=== PATIENT | female | born 1985 | race Caucasian/White ===

== ENCOUNTER 2019-04-07 07:54 | Day surgery (SDC) | payer BC ==
[2019-04-05 12:09] LABS: BASOPHILS % (AUTO) 0.5 % (0-1); EOSINOPHILS # (AUTO) 0.2 X10'3 (0-0.9); EOSINOPHILS % (AUTO) 2.6 % (0-6); LYMPHOCYTES # (AUTO) 1.7 X10'3 (1.1-4.8); LYMPHOCYTES % (AUTO) 26.5 % (21-51); MEAN CORPUSCULAR HEMOGLOBIN 31.8 PG (27.0-31.0); MEAN CORPUSCULAR HGB CONC 35.3 g/dL (33.0-36.5); MEAN CORPUSCULAR VOLUME 90.1 FL (78-98); MEAN PLATELET VOLUME 7.8 FL (7.4-10.4); MONOCYTES # (AUTO) 0.5 X10'3 (0-0.9); MONOCYTES % (AUTO) 7.6 % (2-12); NEUTROPHILS # (AUTO) 4.1 X10'3 (1.8-7.7); NEUTROPHILS % (AUTO) 62.8 % (42-75); PRE OP HEMATOCRIT 39.9 % (35.0-45.0); PRE OP HEMOGLOBIN 14.1 g/dL (12.0-16.0); PRE OP PLATELET COUNT 229 X10'3 (140-440); RED BLOOD COUNT 4.43 X10'6 (4.20-5.60); RED CELL DISTRIBUTION WIDTH 13.1 % (11.5-14.5)
[2019-04-05 12:20] LABS: HCG SERUM QL NEGATIVE
[2019-04-05 12:27] LABS: ALBUMIN 3.9 G/DL (3.4-5.0); ALKALINE PHOSPHATASE 59 IU/L (46-116); BLOOD UREA NITROGEN 17 MG/DL (7-18); BUN/CREATININE RATIO 18.1 (6.6-38.0); CALCIUM 8.9 MG/DL (8.5-10.1); CHLORIDE 108 MMOL/L (99-107); CREATININE 0.94 MG/DL (0.40-0.90); PRE OP ALT 46 U/L (30-65); PRE OP ANION GAP 9 (8-16); PRE OP AST 28 U/L (10-37); PRE OP BILIRUB, TOTAL 0.6 MG/DL (0.0-1.0); PRE OP GLUCOSE 101 MG/DL (70-104); PRE OP POTASSIUM 3.8 MMOL/L (3.4-5.1); PRE OP SODIUM 141 MMOL/L (135-145); TOTAL PROTEIN 7.8 G/DL (6.4-8.2); eGFR 69 ML/MIN
[2019-04-07] VITALS (7 sets, daily range): BP systolic 114–171; BP diastolic 80–116
[~2019-04-07] VITALS: Ht 172.7 cm; Wt 106.6 kg
[~2019-04-07 07:54] MED LIST: ALPR-160 PO; ASPI-611 PO; BUPIVAcaine/PF 2.5mg/ml (0.25%) 10ml vial ONE; FENO145T25 PO; OMEG1CAP PO; ROSU20TA31 PO; SERT50TA10 PO; cefazolin/dext.iso 2gm/100 ML IV ONE; famotidine 20mg tablet PO ONE; ringers solution, lacted 1,000 ML IV SCH
[2019-04-07] MEDS ORDERED: ringers solution, lacted 1,000 ML IV SCH (08:48)
[2019-04-07] MEDS ORDERED: meperidine/PF 25mg/ml syringe IV PRN ×2 (08:50)
[2019-04-07] MEDS ORDERED: ondansetron/PF 4mg/2ml inj IV PRN (08:50)
[2019-04-07] MEDS ORDERED: proCHLORperazine 10 MG/2 ml inj IV PRN (08:50)
[2019-04-07] MEDS ORDERED: morphine 4 MG/ML inj SYRINge IV PRN ×2 (08:50)
[2019-04-07] MEDS ORDERED: fentaNYL/PF 50MCG/1 ML 2ML syringe ONE (10:21)
[2019-04-07] MEDS ORDERED: midazolam 2 mg/2 ml injection ONE (10:21)
[2019-04-07] MEDS ORDERED: glycopyrrolate 0.2mg/ml inj ONE (10:22)
[2019-04-07] MEDS ORDERED: dexamethasone sod phosphate 4mg/ml inj. ONE (10:22)
[2019-04-07] MEDS ORDERED: propofol inj 20 ML IV ONE (10:22)
[2019-04-07] MEDS ORDERED: LIDOcaine 2% (20mg/ml) 5ml vial ONE (10:22)
[2019-04-07] MEDS ORDERED: ondansetron/PF 4mg/2ml inj ONE (10:22)
[2019-04-07] MEDS ORDERED: neostigmine methylsulfate 1 MG/ML 10ml vial ONE (10:22)
[2019-04-07] MEDS ORDERED: sevoflurane 250ml liquid IH ONE (11:00)
[2019-04-07] MEDS ORDERED: rocuronium 10mg/ml inj IV ONE (11:00)
[2019-04-07] MEDS ORDERED: sugammadex 200mg/2ml injection IV ONE (11:39)
--- NOTE | 2019-04-07 11:46 | NUR ---
Received from OR via , accompanied by Anesthesiologist DR LOWRY and report given by Anesthesiolgist. AWAKENS TO VOICE. VITALS STABLE. DRESSINGS DI. STATES SEVERE ABD PAIN. WILL MEDICATE. ABD SOFT.
[2019-04-07] MEDS: meperidine/PF 25mg/ml syringe IV PRN ×2 (11:53→12:03)
--- NOTE | 2019-04-07 12:46 | NUR ---
AWAKE AND ORIENTED. VITALS STABLE. DRESSING DI. STATES PAIN IMPROVING. HOME WITH HER MOM AT THIS TIME.
== END 2019-04-07 12:46 | disposition home or self-care (01) ==
LOC: PAS 07:54
PROVIDERS: ATTEND Obstetrics & Gynecology
DX: Z30.2 Encounter for sterilization (principal); G47.33 Obstructive sleep apnea (adult) (pediatric); E11.9 Type 2 diabetes mellitus without complications; G43.909 Migraine, unspecified, not intractable, without status migrainosus; F41.9 Anxiety disorder, unspecified; J45.909 Unspecified asthma, uncomplicated; F32.9 Major depressive disorder, single episode, unspecified; Z88.0 Allergy status to penicillin; Z86.73 Personal history of transient ischemic attack (TIA), and cerebral infarction without residual deficits; Z98.890 Other specified postprocedural states; Z72.89 Other problems related to lifestyle
CPT/HCPCS: 36415; 58670; 80053; 82948; 84703; 85025; 93005; A6258; C9399; J1100; J2001; J2175; J2250; J2405; J2704; J2710; J3010; J3490; J7120; A4618; A6402; A7000